=== PATIENT | male | born 1945 | race Caucasian/White ===

== ENCOUNTER 2018-06-07 02:30 | Inpatient (IN) | payer OTHER, MEDICARE ==
[~2018-06-07] VITALS: Ht 177.8 cm; Wt 95.3 kg
[~2018-06-07 02:30] MED LIST: ASPIRIN EC81 M1 PO; ATORVASTATIN CA20 M1 PO; FOLIC ACID1 M1 PO; LISINOPRIL30 M1 PO; METHOTREXATE2.5 M2 PO; METOPROLOL SUCC25 M1 PO; NORVASC2.5 M1 PO; PANTOPRAZOLE SO40 M1 PO; TERAZOSIN HCL10 M1 PO
--- NOTE | 2018-06-07 09:20 | Admission Core Measures ---
Acute Coronary Syndrome (CM) ACS Core Measures Acute Coronary Syndrome Diagnosis No Congestive Heart Failure (NEW) CHF Core Measures Congestive Heart Failure Diagnosis No Cerebrovascular Accident CVA Core Measures CVA/TIA Diagnosis No Venous Thromboembolism VTE Core Jai (View Protocol) VTE Risk Factors Surgery No Mechanical VTE Prophylaxis d/t N/A MechProphylax Ordered No VTE Pharm Prophylaxis d/t NA PharmProphylax ordered Problem List As ranked by this Provider includes Assessment & Plan 1. Unilateral primary osteoarthritis, left hip HOME MEDS Home Med List Amlodipine (Norvasc) 2.5 MG TABLET 1 TAB PO DAILY BP (Reported) Aspirin (Ecotrin*) 81 MG TABLET.DR 1 TAB PO DAILY HEARTHEALTH (Reported) Atorvastatin Calcium 20 MG TABLET 1 TAB PO DAILY CHOLESTEROL (Reported) Folic Acid 1 MG TABLET 1 TAB PO DAILY SUPPLEMENT (Reported) Lisinopril 30 MG TABLET 1 TAB PO DAILY BP (Reported) Methotrexate 2.5 MG TABLET 8 TAB PO QW ARTHRITIS (Reported) Metoprolol Succinate 25 MG TAB 1 TAB PO DAILY BP (Reported) Pantoprazole Sodium 40 MG TABLET.DR 1 TAB PO DAILY GI DISTRESS (Reported) Terazosin HCl 10 MG CAPSULE 1 CAP PO DAILY PROSTATE (Reported)
--- NOTE | 2018-06-07 09:21 | Surg Short-stay <48hrs Dis Sum ---
Visit Information Visit Dates Admission Date: 06/07/18 Discharge Date: 06/08/18 Surgical Short Stay DC Summary Admission Diagnosis: Left hip osteoarthritis Final Diagnosis: MIMI s/p L THR Procedure(s): Left total hip replacement Summary/Significant Findings: Patient underwent an elective left total hip replacement on 06/07/[address] Blankenship. Patient tolerated the procedure well. Postoperatively he was tolerating a regular diet, voiding spontaneously, pain was well managed with oral medication and he was ambulating with physical therapy using a rolling walker. Patient was cleared for discharge. Condition at Discharge: Stable Discharge Disposition: home health services Discharge instructions provided to patient/family: Yes Post discharge follow-up plan: [address] Blankenship
--- NOTE | 2018-06-07 09:24 | Patient Discharge Instructions ---
Discharge Instructions General Discharge Information You were seen/treated for: Left hip osteoarthritis You had these procedures: Left total hip replacement on 06/07/18 Watch for these problems: Fever over 100.4 Drainage from wound Redness and swelling around wound Unable to bear weight on right lower extremity Chest pain or shortness of breath Do not soak the wound: Yes No bath, but you may shower: Yes Other wound care: Keep incision clean and dry Daily dry dressing change Special Instructions: Take aspirin 81 twice daily for 4 weeks to prevent clots Take indomethacin three times daily postop Take a stool softner or laxative, such as colace or miralax to prevent constipation while taking narcotics. Diet Continue normal diet: Yes Recommended Diet: Heart Healthy Activity Full Activity/No Limits: No Activity Self Limited: Yes Activity Limited to: Weight bear as tolerated (use rolling walker as needed) Acute Coronary Syndrome Inclusion Criteria At DC or during hospital stay patient has or had the following: ACS DIAGNOSIS No Discharge Core Measures Meds if any: Prescribed or Continued at Discharge Meds if any: NOT Prescribed or Continued at Discharge Congestive Heart Failure Inclusion Criteria At DC or during hospital stay patient has or had the following: CHF DIAGNOSIS No Discharge Core Measures Meds if any: Prescribed or Continued at Discharge Meds if any: NOT Prescribed or Continued at Discharge Cerebrovascular accident Inclusion Criteria At DC or during hospital stay patient has or had the following: CVA/TIA Diagnosis No Discharge Core Measures Meds if any: Prescribed or Continued at Discharge Meds if any: NOT Prescribed or Continued at Discharge Venous thromboembolism Inclusion Criteria VTE Diagnosis No VTE Type NONE VTE Confirmed by (Test) NONE Discharge Core Measures - Per Current guidelines, there needs to be overlap - treatment for the first 5 days of Warfarin therapy. - If discharged on Warfarin prior to 5 days of - overlap therapy, the patient will need to be - assessed for post discharge needs including - *Post discharge parental anticoagulation - *Warfarin and/or parental anticoagulation education - *Follow up date to check INR post discharge At least 5 days overlap therapy as Inpatient No Meds if any: Prescribed or Continued at Discharge Note: Overlap Therapy is Warfarin and Anticoagulant Meds if any: NOT Prescribed or Continued at Discharge
[2018-06-07] MEDS ORDERED: INDOMETHACIN25 M1 PO (10:01)
[2018-06-07] MEDS ORDERED: MIRALAX17 G1 PO (10:01)
[2018-06-07] MEDS ORDERED: COLACE100 M1 PO (10:01)
[2018-06-07] MEDS ORDERED: DILAUDID2 M1 PO (10:01)
[2018-06-07] MEDS ORDERED: ASPIRIN EC81 M1 PO (10:01)
--- NOTE | 2018-06-07 13:38 | RADIOLOGY REPORT ---
EXAMINATION: XR HIP, LEFT CLINICAL INFORMATION: Left hip arthroplasty COMPARISON: None TECHNIQUE: AP and crosstable lateral view of the left hip FINDINGS: Left total hip arthroplasty is noted with components in usual position. No periprosthetic fracture or suspicious area of lucency. There appears to be a radiopaque drain overlying the hip area. Air present within the soft tissues compatible with the postoperative state. IMPRESSION: Expected appearance of a left total hip arthroplasty without complication by x-ray
--- NOTE | 2018-06-07 15:34 | Operative Report ---
Operative/Inv Procedure Report Surgery Date: 06/07/18 Name of Procedure: Left total hip replacement Pre-Operative Diagnosis: Primary left hip DJD Post-Operative Diagnosis: Same Estimated Blood Loss: 300 Surgeon/Videogame Designer: Pattie JEAN,Jacky Pereira Anesthesia: block Operative/Procedure Note Note: Description of Procedure: The patient was taken to the operating room and positively identified. After induction of spinal anesthesia and administration of appropriate pre-operative antibiotics, the patient was positioned supine on the operating room table and all bony prominences were well padded. After performing a surgical timeout, the left lower extremity was prepped and draped in the usual sterile fashion. A direct anterior approach was made to the left hip. The incision was carried sharply through superficial soft tissues to the level of the fascia. Meticulous hemostasis was maintained with Bovie electocautery. The fascia over the tensor fascia joni muscle was opened sharply and the interval between the TFL and the sartorius was entered bluntly taking care to stay lateral to the lateral femoral cutaneous nerve. Retractors were placed around the femoral neck and the pericapsular fat was identified. The ascending branches of the lateral femoral circumflex vessels were identified and carefully coagulated. The pericapsular fat and anterior capsule were then resected. A napkin ring osteotomy was performed and the femoral head was removed without difficulty. Attention was then turned to the acetabulum. After appropriate placement of retractors, the acetabulum was exposed. Soft tissue was cleaned from the acetabular margin and notch. Overhanging osteophytes were removed and the teardrop was exposed. The acetabulum was then sequentially reamed to accept a 60 mm [place] Tritanium hemispherical solid shell. This was impacted into place in the appropriate position and fitted with a 36 mm Trident X3 zero degree polyethylene insert. Attention was then turned to the femur. After performing the appropriate ligament releases, the proximal femur was exposed. It was then sequentially broached to accept a size 8 [place] Accolade II stem. This was trialed for leg length and stability. The trial component was removed and the final component was impacted into place. The trunnion was carefully cleaned and fit with a 36 mm, +0 Biolox delta ceramic femoral head. The hip was reduced and put through a full range of motion and found to be stable. The articular space was then irrigated with sterile saline. The periarticular soft tissues were infilitrated with Marcaine. The fascial layer was closed with interrupted #1 vicryl suture and the skin was re-approximated with interrupted 2 -0 vicryl. The skin was closed with a running 3-0 V-Lock suture. Steri-strips and a sterile dressing were applied. The patient was awakened and taken to the recovery room in satisfactory condition.
--- NOTE | 2018-06-07 15:36 | PN- Student ---
Betra Bates 06/07/18 1528: Subjective Subjective: Patient is doing well. Saw him post op in the PACU and he states that he doesn't have any pain at rest, slight pain with movement of left hip. He did have some nausea, zofran was given and it resolved. Tolerating ice chips. Pt hasn't been oob yet and will go up to the floor soon. No recio, pt is due to void. Objective Objective: Gen: O&Ax3, sitting in bed comfortably, nad Lung: CTA Heart: Regular rhythm, slow rate, s1 and s2 heard Abd: soft,nt/nd Ext: dressing in place on left hip- c/d/i- hemovac in place with dark red serosanguineous output, ALPS in place. Calves were soft, nontender. Skin was warm and dry. Bilaterally, sensation, motor intact, strength 5/5, dp pulses 2+ Assessment/Plan Assessment: This is a 73 yo male POD 0 s/p left total hip athroplasty. Plan: -Give ancef tonight -c/w IV fluids- likely dc tomorrow -Pain control as ordered -Pt will be evaluated by PT, WBAT -No recio, awaiting void -Reg diet, as tolerated -Zofran prn nausea -Encourage IS, oob -order AM labs -C/w home meds Mabel Hassan 06/08/18 1400: Assessment/Plan Plan: agree with above ASA bid for dvt ppx
[2018-06-07 16:00] VITALS: BP 128/68
[2018-06-07 18:18] VITALS: BP 124/74
[2018-06-07 22:08] VITALS: BP 140/71
[2018-06-08 02:04] VITALS: BP 112/63
[2018-06-08 08:18] LABS: ABSOLUTE BASOPHIL COUNT 0 /CUMM (0.0-0.2); ABSOLUTE EOSINOPHIL COUNT 0 /CUMM (0.0-0.7); ABSOLUTE GRANULOCYTE CT 11.3 /CUMM (1.4-6.5); ABSOLUTE LYMPH COUNT 1.2 /CUMM (1.2-3.4); BASOPHIL % 0 % (0.0-2.0); EOSINOPHIL % 0.1 % (0-5); MEAN CORPUSCULAR HGB 30.9 PG (27.0-31.0); MEAN CORPUSCULAR HGB CONC 34.1 G/DL (33.0-37.0); MEAN CORPUSCULAR VOLUME 90.6 FL (80.0-94.0); MEAN PLATELET VOLUME 8.7 FL (7.4-10.4); PLATELET COUNT 210 /CUMM (130-400); RBC DISTRIBUTION WIDTH 13.8 % (11.5-14.5); RED BLOOD CELL CT 3.86 /CUMM (4.70-6.10); WHITE BLOOD CELL COUNT 13.5 /CUMM (4.8-10.8)
[2018-06-08 08:30] VITALS: BP 120/68
[2018-06-08 08:33] VITALS: BP 120/68
--- NOTE | 2018-06-08 08:38 | PN- Orthopedic ---
See Addendum Subjective Subjective: Patient feels well, no voiced complaints, mild soreness in the left hip. No acute events overnight. Objective Vital Signs and I&Os Vital Signs Date Time Temp Pulse Resp B/P B/P Pulse O2 O2 Flow FiO2 Mean Ox Delivery Rate 06/08 0833 64 120/68 06/08 0832 64 120/68 06/08 0832 64 120/68 06/08 0204 97.7 56 20 112/63 93 Room Air 06/07 2208 97.4 60 22 140/71 97 Room Air 06/07 1818 97.6 70 18 124/74 95 Room Air 06/07 1600 97.0 54 18 128/68 95 Room Air Room Air Intake & Output 06/08 1600 06/08 0806/08 0000 06/07 1600 06/07 0806/07 0000 Intake Total 840 860 Output Total 1225 900 Balance -385 -40 Intake, IV 600 460 Intake, Oral 240 400 Number 0 Bowel Movements Output, 125 350 Drainage Output, 100 Emesis Output, Urine 1100 450 Patient 210 lb Weight Weight Reported by Patient Measurement Method Physical Exam: Well-developed well-nourished no apparent distress. HEENT: Atraumatic, extraocular motion intact Neck: Supple, no lymphadenopathy Respiratory: No respiratory distress Extremities: No edema Left lower extremity hip dressing in place, Dressing clean dry and intact Hemovac drain in place, approximately 50 cc of bloody drainage noted, last emptied 3 hours ago 125 cc Mild thigh swelling No signs of infection. No shortening or rotation Hip range of motion is limited and without unexpected pain Neurovascularly intact distally Bilateral calves are supple, nontender. Neuro: Alert and oriented x3 Psych: Mood affect normal, normal memory normal judgment. Skin: Warm and dry, no rash on exposed skin Current Medications: Current Medications Sig/Vilma Start time Last Medication Dose Route Stop Time Status Admin Acetaminophen 1,000 MG Q6H 06/07 1800 DC 06/08 IV 06/08 0601 0530 Acetaminophen 1,000 MG Q6 06/07 1200 DC IV 06/08 0000 Acetaminophen 0 .STK-MED ONE 06/07 0925 DC PO Acetaminophen 975 MG ONCE 06/07 0000 DC PO 06/07 2359 Amlodipine Besylate 2.5 MG DAILY 06/08 09 AC 06/08 PO 0832 Aspirin Buffered 81 MG BID 06/07 2100 AC 06/08 PO 0832 Atorvastatin Calcium 20 MG 1700 06/08 1700 AC PO Atorvastatin Calcium 20 MG DAILY 06/08 0900 DC PO Cefazolin Sodium 2 GM Q8H 06/07 1800 DC 06/08 N/A 1 UNIT IV 06/08 0229 0218 Cefazolin Sodium 2 GM IQ8 06/07 1600 DC N/A 1 UNIT IV 06/08 0029 Cefazolin Sodium 2,000 MG ONCE 06/07 0000 DC IV 06/07 2359 Dextrose/Sodium 1,000 ML .[id number] 06/07 1615 AC 06/08 Chloride IV 0451 Docusate Sodium 100 MG BID 06/07 2100 AC 06/08 PO 0832 Doxazosin Mesylate 4 MG DAILY 06/08 0900 AC 06/08 PO 0832 Fentanyl Citrate 0 .STK-MED ONE 06/07 0935 DC .ROUTE Hydromorphone HCl 2 MG Q4P PRN 06/07 1615 AC 06/08 PO 0746 Hydromorphone HCl 4 MG Q4P PRN 06/07 1615 AC PO Indomethacin Sodium 25 MG TID 06/07 1400 AC 06/08 PO 0832 Lisinopril 30 MG DAILY 06/08 0900 AC 06/08 PO 0832 Metoprolol Succinate 25 MG DAILY 06/08 0900 AC 06/08 PO 0833 Midazolam HCl 0 .STK-MED ONE 06/07 0935 DC .ROUTE Morphine Sulfate 2 MG Q2P PRN 06/07 1615 AC IV Omeprazole 40 MG DAILY AC 06/08 0700 AC 06/08 PO 0531 Ondansetron HCl 4 MG Q6P PRN 06/07 1615 AC 06/07 IV 1922 Ondansetron HCl 0 .STK-MED ONE 06/07 1320 DC .ROUTE Oxycodone HCl 0 .STK-MED ONE 06/07 0925 DC PO Oxycodone HCl 10 MG ONCE 06/07 0000 DC PO 06/07 2359 Polyethylene Glycol 17 GM DAILY 06/08 0900 AC 06/08 PO 0832 Results Last 48 Hours of Labs: Laboratory Tests 06/08 627 Chemistry Sodium Pending Potassium Pending Chloride Pending Carbon Dioxide Pending Anion Gap Pending BUN Pending Creatinine Pending BUN/Creatinine Ratio Pending Hematology CBC w Diff Pending WBC Pending RBC Pending Hgb Pending Hct Pending MCV Pending MCH Pending MCHC Pending RDW Pending Plt Count Pending MPV Pending Assessment/Plan Assessment/Plan Postop day #1 status post left total hip replacement, anterior approach. Perioperative antibiotics. Pain medication as needed. Out of bed Physical therapy, weightbearing as tolerated DC IV fluids Regular diet Follow a.m. labs Aspirin for DVT prophylaxis ALPS for DVT prophylaxis Regular home meds Dressing change postop day 2 Continue Hemovac drain until this afternoon, likely home today with [facility] services , will pull drain at that time Core Measures Venous Thromboembolism VTE Risk Factors Surgery No Mechanical VTE Prophylaxis d/t N/A MechProphylax Ordered No VTE Pharm Prophylaxis d/t NA PharmProphylax ordered
[2018-06-08 09:35] LABS: GRANULOCYTE % 83.8 % (42.2-75.2)
== END 2018-06-08 14:55 | disposition home health service (06) | DRG 470 ==
LOC: 2NB 02:30 → SDA 02:30 → ENRESERV 13:08 → ENTRNSPT 15:27 → EDTRNSPT 15:46 → EDTRNSPTSTS 15:46 → 2NB 15:47 → CMPTRNSPT 16:02 → ENTRNSPT 06-08 14:44 → 2NB 06-08 14:55 → CMPTRNSPT 06-08 15:12
PROVIDERS: Physician Assistant Surgical
PROC: 0SRB04A Replacement of Left Hip Joint with Ceramic on Polyethylene Synthetic Substitute, Uncemented, Open Approach (ICD-10-PCS; principal; 2018-06-07)
DX: M16.12 Unilateral primary osteoarthritis, left hip (principal); I25.10 Atherosclerotic heart disease of native coronary artery without angina pectoris; I10 Essential (primary) hypertension; E78.5 Hyperlipidemia, unspecified; Z87.442 Personal history of urinary calculi; L40.50 Arthropathic psoriasis, unspecified; M45.9 Ankylosing spondylitis of unspecified sites in spine; K21.9 Gastro-esophageal reflux disease without esophagitis; Z98.61 Coronary angioplasty status; Z79.899 Other long term (current) drug therapy
CPT/HCPCS: 2NBSP; 36592; 73502-LT; 82436; 97110-GO; 97116-GO; 97161-GP; 97530-GO; J0131; J0690; J0735; J2405; J7042